=== PATIENT | male | born 1965 | race Caucasian/White ===

== ENCOUNTER → 2019-02-06 | Day surgery (SDC) | payer BC ==
[~2019-02-06] MED LIST: BENICAR20 MG PO; FENTANYL CITRATE/PF 100MCG/2 ML INJ ONE; LIDOCAINE HCL 2% LOCAL INJ 5 ML SDV VIAL INJ ONE; MIDAZOLAM HCL 2 MG/2 ML VIAL ONE; PROPOFOL IV EMULSION 10 MG/ML 20 ML VIAL ONE
[2019-02-06 16:10] VITALS: BP 110/82
--- NOTE | 2019-02-06 17:39 | Operative Report ---
DATE OF PROCEDURE: 02/06/2019 SURGEON: Dom Wiley MD PROCEDURES: Esophagogastroduodenoscopy with biopsies and esophageal dilatation and colonoscopy with polypectomy and biopsies. INDICATIONS FOR EGD: Dysphagia, heartburn. INDICATIONS FOR COLONOSCOPY: Surveillance colonoscopy, personal history of colon polyps. MEDICATIONS: The patient was done under MAC, please see anesthesiologist's note. PROCEDURE IN DETAIL: With the patient in left lateral decubitus position, flexible fiberoptic Olympus gastroscope was introduced into the esophagus under direct visualization without any difficulty. There were some longitudinal furrows noted that are suspicious of possible eosinophilic esophagitis along with some possible concentric rings. Biopsies were obtained to rule out EOE. A mild stricture was noted. GE junction was dilated to size 52-[place] Duval. The scope was then advanced with ease into the stomach traversing a small sliding hiatal hernia. Mucosa overlying the antrum and the body revealed some patchy erythema and moderate edema and biopsies were obtained and sent to stain for H pylori. Pylorus was of normal contour and shape, it was intubated with ease and the scope was advanced all the way to the second portion of the duodenum. The scope was then withdrawn slowly, mucosa overlying the proximal second portion and the duodenal bulb grossly appeared to be within normal limits. Biopsies were obtained to rule out sprue. The scope was then withdrawn back into the stomach and retroflexed, mucosa overlying the fundus and the cardia appeared to be within normal limits. The scope was then straightened out, it was subsequently withdrawn. The patient tolerated the procedure well. IMPRESSION: 1. Rule out eosinophilic esophagitis. 2. Esophageal stricture at GE junction dilated to size 52-[place] Duval. 3. Small sliding hiatal hernia. 4. Gastritis. 5. Rule out sprue. PLAN: Follow up histology. Initiate Protonix 40 mg one p.o. q.a.m. a.c. PROCEDURE IN DETAIL: The patient was then turned around after adequate lubrication of the anal canal, flexible fiberoptic Olympus colonoscope was inserted into the rectum with ease and advanced all the way to the cecum. One polyp was noted in the cecum that was removed per hot biopsy forceps. One polyp was snared from the ascending colon. The transverse appeared to be within normal limits. One polyp was snared and polypectomy site was hemoclipped. An additional polyp was hot biopsied in the descending colon. Mucosa overlying the sigmoid and the rectum revealed some patchy areas of intense erythema and low-grade edema and biopsies were obtained. The scope was then retroflexed into the distal rectum and small internal hemorrhoids were noted, none of which was actively bleeding. The scope was then straightened out, it was subsequently withdrawn. The patient tolerated the procedure well. IMPRESSION: 1. Cecal polyp, hot biopsied. 2. Ascending colon polyp, snared. 3. Descending colon polyps x2, one snared, one polypectomy site hemoclipped and an additional polyp was hot biopsied. 4. Proctosigmoiditis, mild. 5. Internal hemorrhoids, none actively bleeding. PLAN: Follow up histology. Initiate high-fiber, low-fat diet. Initiate high-fiber supplement. The patient might benefit from a followup colonoscopy in 3 years. Dom Wiley MD [facility] /[id number] cc: Dr. Flora Madrigal
== END | disposition home or self-care (01) ==
LOC: OR 15:07
PROVIDERS: ATTEND Internal Medicine Gastroenterology
DX: K22.2 Esophageal obstruction (principal); D12.0 Benign neoplasm of cecum; D12.2 Benign neoplasm of ascending colon; K29.70 Gastritis, unspecified, without bleeding; K21.9 Gastro-esophageal reflux disease without esophagitis; K44.9 Diaphragmatic hernia without obstruction or gangrene; K63.89 Other specified diseases of intestine; K64.8 Other hemorrhoids; K59.09 Other constipation; I10 Essential (primary) hypertension; Z68.27 Body mass index [BMI] 27.0-27.9, adult
CPT/HCPCS: 43239; 43450; 45380; 45384; 45385; J2001; J2250; J2704